=== PATIENT | male | born 1995 | race Caucasian/White ===

== ENCOUNTER 2016-12-15 18:19 | Emergency (ER) | payer BC ==
[~2016-12-15] VITALS: Ht 180.3 cm; Wt 73.0 kg
[~2016-12-15 18:19] MED LIST: NAPR1CAP12 PO
[2016-12-15 18:23] VITALS: TEMP 36.9; Ht 180.3 cm; Wt 73.0 kg
[2016-12-15] MEDS ORDERED: ACET-1256 PO (18:54)
--- NOTE | 2016-12-15 19:26 | DIAGNOSTIC IMAGING REPORT ---
LEFT KNEE 3 VIEWS HISTORY: left knee injury COMPARISON: None. FINDINGS: Small lucency at the medial aspect of the medial femoral condyle. This likely represents a nondisplaced fracture. There is medial soft tissue swelling. There is a moderate lipohemarthrosis. No dislocation. No radiopaque foreign bodies. IMPRESSION: Moderate lipohemarthrosis. Small lucency at the medial aspect of the medial femoral condyle likely represents a nondisplaced fracture. Electronically signed by: Florentin Claros M.D. 12/15/2016 7:24 PM Dictated Date/Time: 12/15/2016 7:22 PM
--- NOTE | 2016-12-15 19:50 | EMERGENCY ROOM VISIT NOTE ---
ED Visit Note First contact with patient: 18:42 CHIEF COMPLAINT: knee pain HISTORY OF PRESENT ILLNESS: This 21-year-old male patient presents to the emergency department ambulatory after sustaining an injury to the left knee just prior to arrival. The patient states that he was riding a skateboard when he twisted the left knee and fell. The patient denies any other injuries besides their knee. The patient complains of swelling in the left knee. He denies pain at rest, but states he is unable to bear weight on the knee and rates his discomfort a 6/10 with weightbearing. He denies any previous injury to the knee. He denies any numbness or tingling. He has not taken any medication for pain. REVIEW OF SYSTEMS: A 6 system review of systems was completed with positives and pertinent negatives listed in the HPI. ALLERGIES: No known drug allergies MEDICATIONS: No chronic medications PMH: No significant past medical history. SOCIAL HISTORY: The patient lives locally with family. PHYSICAL EXAM: Vital Signs: Reviewed Nurse's notes, vital signs stable. GENERAL : This is a 21-year-old male, no acute distress, but appears in pain, well- developed, well-nourished. MENTAL STATUS: Alert, oriented to person place and time, and cooperative. MUSCULOSKELETAL: The left knee is significantly swollen. There is no ecchymosis. There is in moderate joint effusion present. The patient is tender over the medial aspect of the anterior knee. There is no joint line tenderness. The patella does not subluxate. Range of motion is limited secondary to patient discomfort. Strength of the quads and hamstrings is decreased due to pain. Ligamentous examination is limited due to patient discomfort and swelling. The foot and toes are warm and well-perfused. Dorsalis pedis pulse 2+. Sensation to pain and light touch is intact. Capillary refill less than 2 seconds. RADIOGRAPHIC FINDINGS: LEFT KNEE 3 VIEWS HISTORY: left knee injury COMPARISON: None. FINDINGS: Small lucency at the medial aspect of the medial femoral condyle. This likely represents a nondisplaced fracture. There is medial soft tissue swelling. There is a moderate lipohemarthrosis. No dislocation. No radiopaque foreign bodies. IMPRESSION: Moderate lipohemarthrosis. Small lucency at the medial aspect of the medial femoral condyle likely represents a nondisplaced fracture. EMERGENCY DEPARTMENT COURSE: I examined the patient. X-rays of the left knee were reviewed by myself and read by radiology and reveal a moderate lipohemarthrosis with evidence of a possible nondisplaced fracture of the medial aspect of the medial femoral condyle. The patient was placed in a knee immobilizer under my direction and the position was satisfactory. The patient was instructed on the use of crutches. Conservative measures were discussed. He was instructed to remain nonweightbearing until he follows up with orthopedics. He was given information for orthopedic follow-up. The patient and his father verbalized understanding of my assessment and treatment plan. The patient was discharged home in good condition. DIAGNOSIS: Left knee injury Current/Historical Medications Scheduled PRN Acetaminophen (Tylenol), 1,000 MG PO Q6H PRN for Pain Allergies Coded Allergies: POLLEN (Verified Allergy, Intermediate, congestion, 10/16/14) Vital Signs Date Time Temp Pulse Resp B/P Pulse Ox O2 Delivery O2 Flow Rate FiO2 12/15/16 20:27 75 18 146/96 97 12/15/16 18:23 36.9 72 18 142/88 100 Room Air Departure Information Impression Primary Impression: Femoral condyle fracture Dispostion Home / Self-Care Condition GOOD Referrals No Doctor, Assigned (PCP) Miguel Chun, DO Patient Instructions My [facility] Additional Instructions You have been treated in the Emergency Department for Knee Pain. For pain control, you can use the following [id number] medicines (if >12 yo): - Regular strength (325mg/tab) Tylenol (acetaminophen) 2 tabs every 4-6 hours as needed. Do not exceed 12 tablets in a 24 hour period. Avoid taking more than 4 grams (4000 mg) of Tylenol per day. This includes any other sources of acetaminophen you may take on a regular basis. - Regular strength (200 mg/tab) Advil (ibuprofen) 1-2 tabs every 4-6 hours as needed. Do not exceed a dose of 3200 mg per day. If this is a recent injury (<24 hrs), ice can be applied to the area of pain for the first 3 days to help decrease pain and inflammation. Ice massages can be performed by freezing water in a paper cup, peeling back the cup to expose the ice and then massaging over the affected area. You have been provided the number for an Orthopaedic Surgeon. You should call this number as soon as possible to establish a follow-up visit from today's Emergency Department visit. Keep the knee brace in place until cleared by Orthopedics. Use the crutches you have been provided to keep ALL weight off of the knee until follow up with orthopedics. Return to the Emergency Department if your current symptoms worsen despite treatment course outlined above. Problem Qualifiers Primary Impression: Femoral condyle fracture Encounter type: initial encounter Fracture type: closed Fracture alignment : nondisplaced Laterality: left Qualified Codes: S72.415A - Nondisplaced unspecified condyle fracture of lower end of left femur, initial encounter for closed fracture
[2016-12-15 20:27] VITALS: BP 146/96; PULSE 75; O2SAT 97
== END 2016-12-15 20:28 | disposition home or self-care (01) ==
LOC: C.EDB 18:21 → C.EDD 20:28
DX: S72.435A Nondisplaced fracture of medial condyle of left femur, initial encounter for closed fracture (principal); V00.131A Fall from skateboard, initial encounter; Y92.89 Other specified places as the place of occurrence of the external cause

== ENCOUNTER → 2016-12-20 | Outpatient (CLI) | payer BC, OTHER ==
[~2016-12-20] MED LIST changes: +ACET-1256 PO; -NAPR1CAP12 PO
--- NOTE | 2016-12-20 20:19 | DIAGNOSTIC IMAGING REPORT ---
MRI OF THE LEFT KNEE WITHOUT CONTRAST CLINICAL HISTORY: Left knee pain and swelling following injury. COMPARISON STUDY: Left knee radiographs December 15, 2016. TECHNIQUE: Utilizing a 1.5 Carla magnet and dedicated coil, multiplanar, multiecho imaging of the left knee was performed without intravenous or intraarticular contrast. FINDINGS: Alignment of the left knee is anatomic. There is a large left knee joint effusion with lipohemarthrosis. There is linear T1 hypointense signal within the lateral tibial plateau which extends to the tibial spines. There is associated marrow edema. This is consistent with an acute fracture. There is no tibial plateau depression. There is an avulsion fracture involving the anterior aspect of the tibial spine at the insertion of the anterior cruciate ligament. There is a suspected tear of the distal ACL with an associated avulsed bone fragment. No meniscal tear is identified. The posterior cruciate ligament is intact. The medial collateral ligament and lateral collateral limits complex are intact. There is moderate edema adjacent to the left knee. A contusion of the lateral femoral condyle is noted. There is an associated impaction injury often seen in the setting of an ACL tear. There is no additional chondral abnormality. IMPRESSION: 1. Acute lateral tibial plateau fracture without depression. Associated minimally displaced avulsion fracture of the anterior tibial spine at the insertion of the ACL. The anterior cruciate ligament is difficult to assess given the associated avulsion injury but there may be a distal ACL tear related to the bony avulsion. 2. Large left knee joint effusion with lipohemarthrosis. 3. No meniscal tear. Electronically signed by: Hossein Gerardo M.D. 12/20/2016 8:17 PM Dictated Date/Time: 12/20/2016 6:27 PM
== END | disposition home or self-care (01) ==
LOC: C.MRIBC 16:24
PROVIDERS: ATTEND Orthopaedic Surgery
DX: S82.142A Displaced bicondylar fracture of left tibia, initial encounter for closed fracture (principal); S82.112A Displaced fracture of left tibial spine, initial encounter for closed fracture; M25.462 Effusion, left knee; M25.062 Hemarthrosis, left knee; X58.XXXA Exposure to other specified factors, initial encounter

== ENCOUNTER 2017-08-21 12:50 | Emergency (ER) | payer BC, OTHER ==
[~2017-08-21] VITALS: Ht 180.3 cm; Wt 85.4 kg
[2017-08-21 13:00] VITALS: TEMP 36.5; Ht 180.3 cm; Wt 85.4 kg
[2017-08-21] MEDS ORDERED: ONDANSETRON 4MG OD TAB PO ONE (13:30)
[2017-08-21] MEDS ORDERED: ONDANSETRON HOME PACK 4MG OD TAB PO ONE (13:30)
--- NOTE | 2017-08-21 13:49 | EMERGENCY ROOM VISIT NOTE ---
History Report prepared by Antonio: Liang Canales Under the Supervision of: Dr. Armando Xiao D.O. First contact with patient: 13:16 Chief Complaint: VOMITING Stated Complaint: BLACK VOMIT History of Present Illness The patient is a 21 year old male who presents to the Emergency Room with complaints of vomiting this morning at 0400 3 times. The patient reports he vomited up blood his last time and that he has hiccups that resolve after vomiting. The patient denies diarrhea and abdominal pain. He denies taking any medications or having any previous medical problems. The patients last dietary intake was at 2200 last night and that his last bowel movement was yesterday. The patient denies any recent alcohol consumption. The patient reports keeping fluids down. Source of History: patient Onset: 9 hours ago Position: other (global) Timing: other (episodic) Associated Symptoms: + nausea, + vomiting Review of Systems See HPI for pertinent positives & negatives. A total of 10 systems reviewed and were otherwise negative. Social History Smoking Status: Never Smoker Occupation Status: employed, [employer] student Current/Historical Medications No Active Prescriptions or Reported Meds Allergies Coded Allergies: POLLEN (Verified Allergy, Intermediate, congestion, 08/21/17) Physical Exam Vital Signs Date Time Temp Pulse Resp B/P (MAP) Pulse Ox O2 Delivery O2 Flow Rate FiO2 08/21/17 13:00 36.5 79 18 150/79 99 Physical Exam CONSTITUTIONAL/VITAL SIGNS: Reviewed / noted above. GENERAL: Non-toxic in appearance. INTEGUMENTARY: Warm, dry, and [place]. HEAD: Normocephalic. EYES: without scleral icterus or trauma. ENT/OROPHARYNX: clear and moist. LYMPHADENOPATHY/NECK: Is supple without lymphadenopathy or meningismus. RESPIRATORY: Lungs clear and equal. CARDIOVASCULAR: Regular rate and rhythm. GI/ABDOMEN: Soft and nontender. No organomegaly or pulsatile mass. No rebound or guarding. Normal bowel sounds. EXTREMITIES: Warm and well perfused. BACK: No CVA tenderness. NEUROLOGICAL: Intact without focal deficits. PSYCHIATRIC: normal affect. MUSCULOSKELETAL: Normally developed with good muscle tone. Medical Decision & Procedures Medications Administered Medications (Trade) Dose Ordered Sig/Cuate Route Start Time Stop Time Status Last Admin Dose Admin Ondansetron HCl (Zofran Odt) 4 mg ONE ONCE PO 08/21/17 13:30 12/25/17 13:31 DC 08/21/17 13:39 4 MG Ondansetron HCl (ZOFRAN ODT 4MG Home Pack) 1 [facility] UD ONCE PO 08/21/17 13:30 08/21/17 13:31 DC 08/21/17 13:43 1 HOMEPACK ED Course 1316: Previous medical records were reviewed. The patient was evaluated in room C7. A complete history and physical examination was performed. 1330: Zofran Odt 4 mg, PO; Zofran Odt 4 mg home pack. 1340: On reevaluation, the patient is doing well. I discussed the results and findings with the patient. The patient verbalized agreement of the treatment plan. He was discharged home. 1350: On reevaluation, the patient is doing well. I discussed the results and findings with the patient. He verbalized agreement of the treatment plan. The patient was discharged home. Medical Decision Differential diagnosis: Etiologies such as gastroenteritis, food borne illness, infections, appendicitis , diverticulitis, inflammatory bowel disease, obstruction, GI bleed, biliary pathology, as well as others were entertained. This is a 21-year-old male who presents to the ED with a chief complaint of nausea and vomiting. The patient states he vomited 3 times since 4:00 this morning. His last episode was around noon. He denies having any diarrhea. He currently states that he is feeling better and he denies having any abdominal discomfort. He currently does not have any nausea. His exam was normal. His abdomen is soft and nontender. After evaluating the patient, I did not feel further workup was needed at this time as he is currently asymptomatic. His exam was normal. He was given a Zofran here and a Zofran ODT should his symptoms return. He is to anticipate improvement of symptoms over the next 24 hours. If he has any new onset of abdominal pain, recurrent symptoms where he is unable to tolerate by mouth, he will return for further evaluation. The patient states that he has been drinking fluids and keeping it down. Medication Reconcilliation Current Medication List: was personally reviewed by me Blood Pressure Screening Patient's blood pressure: Elevated blood pressure Blood pressure disposition: Elevated BP felt to be situational Impression Primary Impression: Vomiting Scribe Attestation The scribe's documentation has been prepared under my direction and personally reviewed by me in its entirety. I confirm that the note above accurately reflects all work, treatment, procedures, and medical decision making performed by me. Departure Information Dispostion Home / Self-Care Prescriptions No Active Prescriptions or Reported Meds Referrals Umair Nunez M.D. (PCP) Patient Instructions ED Nausea Vomiting, My [facility] Additional Instructions Return to the emergency department for worsening or new symptoms or any concerns. You have been examined and treated today on an emergency basis only. This is not a substitute for, or an effort to provide, complete comprehensive medical care. It is impossible to recognize and treat all injuries or illnesses in a single emergency department visit. It is therefore important that you follow up closely with your doctor. Call as soon as possible for an appointment. Zofran: Allow one tablet to dissolve under the tongue every 6 hours as needed for nausea or vomiting.
[2017-08-21 14:10] VITALS: BP 120/86; PULSE 89; O2SAT 99
== END 2017-08-21 14:12 | disposition home or self-care (01) ==
LOC: C.EDB 12:53 → C.EDC 14:12
DX: R11.2 Nausea with vomiting, unspecified (principal)